=== PATIENT | female | born 1985 | race Caucasian/White ===

== ENCOUNTER 2022-05-08 21:56 | Emergency (ER) | payer BC ==
[2022-05-08] MEDS ORDERED: EPINEPHrine 1 MG/10 ML Abboject SYRINGE ONE (22:01)
[2022-05-08] MEDS ORDERED: EPINEPHrine 1 MG/ML AMP ONE ×2 (22:02→22:03)
[2022-05-08] MEDS ORDERED: diphenhydrAMINE 50 MG/ML VIAL ONE (22:03)
[2022-05-08] MEDS ORDERED: Famotidine/PF 20 mg/2ml Vial ONE (22:03)
[2022-05-08] MEDS ORDERED: methylPREDNISolone Sod Succ/PF 125 MG/2 ML VIAL ONE (22:03)
== END 2022-05-09 00:28 | disposition home or self-care (01) ==
LOC: CSHERS 21:56
DX: T78.2XXA Anaphylactic shock, unspecified, initial encounter (principal)
CPT/HCPCS: 96372; 96374; 96375; J0171; J1200; J2930; S0028

== ENCOUNTER 2022-12-21 09:31 | Emergency (ER) | payer BC ==
[2022-12-21] MEDS ORDERED: predniSONE 20 MG TAB ONE (12:48)
[2022-12-21] MEDS ORDERED: Ipratropium/Albuterol 3 ML NEB ONE ×2 (12:48→13:53)
[2022-12-21] MEDS ORDERED: predniSONE 20 MG TAB PO SCH (13:00)
== END 2022-12-21 14:20 | disposition home or self-care (01) ==
LOC: CSHERS 09:31
DX: O98.513 Other viral diseases complicating pregnancy, third trimester (principal); B34.9 Viral infection, unspecified; Z3A.31 31 weeks gestation of pregnancy
CPT/HCPCS: 71046; 94640; J7512; J7620

== ENCOUNTER 2023-01-03 10:26 | Day surgery (SDC) | payer BC | END 2023-01-03 11:55 | disposition home health service (06) | LOC: CSHLD/OP 10:26 | PROVIDERS: ATTEND Student in an Organized Health Care Education/Training Program | DX: O47.03 False labor before 37 completed weeks of gestation, third trimester (principal); O09.213 Supervision of pregnancy with history of pre-term labor, third trimester; O09.523 Supervision of elderly multigravida, third trimester; O99.113 Other diseases of the blood and blood-forming organs and certain disorders involving the immune mechanism complicating pregnancy, third trimester; M32.9 Systemic lupus erythematosus, unspecified; Z91.013 Allergy to seafood; Z3A.32 32 weeks gestation of pregnancy; Z79.899 Other long term (current) drug therapy | CPT/HCPCS: 99282 ==

== ENCOUNTER 2023-02-03 05:30 | Inpatient (IN) | payer BC ==
[2023-02-03 19:48] VITALS: BMI 39.3
[2023-02-03] MEDS ORDERED: Misoprostol 200 MCG TAB PR PRN (20:01)
[2023-02-03] MEDS ORDERED: HYDROcodone/Acetaminophen 5/325 mg Tablet PO PRN (20:01)
[2023-02-03] MEDS ORDERED: Diphenoxylate HCl/Atropine Tablet PO PRN (20:01)
[2023-02-03] MEDS ORDERED: Carboprost 250 MCG/ML AMP IM PRN (20:01)
[2023-02-03] MEDS ORDERED: fentaNYL 50 mcg/mL 1 mL Vial SLOW IVP PRN (20:01)
[2023-02-03] MEDS ORDERED: Acetaminophen 500 MG TAB PO PRN (20:01)
[2023-02-03] MEDS ORDERED: Ibuprofen 800 MG TAB PO PRN (20:01)
[2023-02-03] MEDS ORDERED: Oxytocin 30 units/NS 500 ML 500 ML IV SCH ×2 (20:01)
[2023-02-03] MEDS ORDERED: Lidocaine 1% (PF) 30 ML VIAL SC PRN (20:01)
[2023-02-03] MEDS ORDERED: Promethazine HCl 25 MG/ML VIAL IM PRN (20:01)
[2023-02-03] MEDS ORDERED: Ondansetron PF 4 MG/2 ML Vial IVP PRN (20:01)
[2023-02-03] MEDS ORDERED: Methylergonovine 0.2 MG/ML VIAL IM PRN (20:01)
[2023-02-03] MEDS ORDERED: hydrALAZINE 20 MG/ML VIAL SLOW IVP PRN (20:01)
[2023-02-03] MEDS: Lactated Ringer's 1,000 ML IV SCH (20:30)
[2023-02-03 21:12] LABS: Hematocrit 34.8 % (34.9-44.5); Hemoglobin 11.3 g/dL (12.0-15.5); Mean Corpuscular HGB CONC 32.5 g/dL (32.0-36.0); Mean Corpuscular Hemoglobin 26.5 pg (27.0-33.0); Mean Corpuscular Volume 81.7 fl (81.6-98.3); Mean Platelet Volume 10.8 fl (7.4-10.4); Platelet Count 326 10x3/uL (150-450); RBC Distribution Width 13.5 % (11.5-14.5); Red Blood Cell (RBC) Count 4.26 10x6/uL (3.90-5.03); White Blood Cell (WBC) Count 9.8 10x3/uL (3.5-10.5)
[2023-02-03 21:22] LABS: ALT (SGPT) 10 U/L (8-55); AST (SGOT) 16 U/L (5-34); Albumin 3.3 g/dL (3.5-5.0); Alkaline Phosphatase 141 U/L (40-110); Anion Gap 16 mmol/L (10-20); BUN (Urea Nitrogen) 11 mg/dL (7.0-18.7); Bilirubin, Total 0.4 mg/dL (0.2-1.2); Calc. Creatinine Clearance 169 mL/min (70-130); Calcium 10.7 mg/dL (7.8-10.44); Carbon Dioxide 20 mmol/L (22-29); Chloride 103 mmol/L (98-107); Estimated GFR 105; Globulin 2.8 g/dL (2.4-3.5); Glucose 86 mg/dL (70-105); Potassium 4.1 mmol/L (3.5-5.1); Protein, Total 6.1 g/dL (6.0-8.3); Sodium 135 mmol/L (136-145)
[2023-02-03] MEDS ORDERED: Zolpidem Tartrate 5 MG TAB PO SCH (21:30)
[2023-02-03] MEDS: Misoprostol 100 MCG TAB VAG SCH ×2 (21:41→21:42)
[2023-02-03 23:11] LABS: Hep B Surf Ag - L&D Non-Reactive S/CO (NonReactive); Syphilis Antibody Nonreactive (Nonreactive); Syphilis Antibody Index 0.03 S/CO (<1.00 Non-Reactive)
[2023-02-04] MEDS: Lactated Ringer's 1,000 ML IV SCH ×2 (03:40→23:53)
[2023-02-04] MEDS ORDERED: fentaNYL/Ropivacaine Epidural 100 ML ONE (08:44)
[2023-02-04] MEDS ORDERED: Promethazine HCl 25 MG/ML VIAL IM PRN ×2 (09:36→23:33)
[2023-02-04] MEDS ORDERED: Moisturizing Cream (Eucerin) 113 GM JAR TOP PRN (09:36)
[2023-02-04] MEDS ORDERED: Ondansetron PF 4 MG/2 ML Vial IVP PRN ×2 (09:36→23:33)
[2023-02-04] MEDS ORDERED: Naloxone HCl 0.4 mg/ml Vial IVP PRN ×2 (09:36)
[2023-02-04] MEDS ORDERED: ePHEDrine Sulfate 50 MG/10 ML VIAL SLOW IVP PRN (09:36)
[2023-02-04] MEDS ORDERED: diphenhydrAMINE 50 MG/ML VIAL IVP PRN (09:36)
[2023-02-04] MEDS ORDERED: Acetaminophen 325 MG TAB PO PRN (09:36)
[2023-02-04] MEDS ORDERED: Lactated Ringer's 500 ML IV PRN (09:36)
[2023-02-04] MEDS ORDERED: fentaNYL 2 mcg/Ropivacaine 0.2% Epidural 100 ML CADD EPIDURAL SCH (09:45)
[2023-02-04] MEDS ORDERED: Communication Order-Pharmacy FS SCH (09:45)
[2023-02-04] MEDS ORDERED: Bupivacaine 0.25% HCL 30 ML VIAL ONE (14:25)
[2023-02-04] MEDS ORDERED: HYDROcodone/Acetaminophen 5/325 mg Tablet PO PRN ×2 (23:33)
[2023-02-04] MEDS ORDERED: Bisacodyl 10 MG SUPP PR PRN (23:33)
[2023-02-04] MEDS ORDERED: hydrALAZINE 20 MG/ML VIAL SLOW IVP PRN (23:33)
[2023-02-04] MEDS ORDERED: Benzocaine-Menthol 82.5 ML CAN TOP PRN (23:33)
[2023-02-04] MEDS ORDERED: Lanolin Ointment 7 GM TUBE TOP PRN (23:33)
[2023-02-04] MEDS ORDERED: Milk Of Magnesia 30 ML UDCUP PO PRN (23:33)
[2023-02-04] MEDS ORDERED: Preparation H Ointment 28 GM TUBE PR PRN (23:33)
[2023-02-04] MEDS ORDERED: diphenhydrAMINE 25 MG CAP PO PRN (23:33)
[2023-02-04] MEDS ORDERED: Boostrix 0.5 ML (Tdap) VIAL (>/=7 yrs of age) IM ONE (23:33)
[2023-02-04] MEDS ORDERED: Ibuprofen 800 MG TAB PO SCH (23:45)
[2023-02-04] MEDS: Misoprostol 100 MCG TAB VAG SCH (23:53)
[2023-02-04] MEDS ORDERED: Zolpidem Tartrate 5 MG TAB PO PRN (23:59)
[2023-02-05] MEDS: Ibuprofen 800 MG TAB PO SCH ×3 (06:08→21:27)
[2023-02-05] MEDS: Ferrous Sulfate 325 MG TAB PO SCH ×2 (07:37→20:47)
[2023-02-05 07:44] LABS: Hematocrit 30.2 % (34.9-44.5); Hemoglobin 9.7 g/dL (12.0-15.5)
[2023-02-05] MEDS ORDERED: Prenatal Vitamin 1 TAB PO SCH (09:00)
[2023-02-05] MEDS: Docusate 100 MG CAP PO SCH ×2 (10:51→21:28)
[2023-02-05 16:00] VITALS: TEMP 98.4
[2023-02-05 20:59] VITALS: BP 135/87
== END 2023-02-05 21:30 | disposition home or self-care (01) | DRG 807 ==
LOC: CSHLD 19:33 → CSHPED 02-04 23:50
PROVIDERS: ADMIT Student in an Organized Health Care Education/Training Program; ATTEND Student in an Organized Health Care Education/Training Program
PROC: 10E0XZZ Delivery of Products of Conception, External Approach (ICD-10-PCS; principal; 2023-02-04)
DX: O36.5930 Maternal care for other known or suspected poor fetal growth, third trimester, not applicable or unspecified (principal); Z37.0 Single live birth; Z3A.37 37 weeks gestation of pregnancy; Z79.899 Other long term (current) drug therapy; Z79.82 Long term (current) use of aspirin; M32.9 Systemic lupus erythematosus, unspecified; Z91.013 Allergy to seafood; O99.892 Other specified diseases and conditions complicating childbirth
CPT/HCPCS: 36415; 51702; 80053; 85014; 85018; 85027; 86780; 86850; 86900; 86901; 87340; J2590; J7120; S0020

== ENCOUNTER 2023-03-18 19:26 | Emergency (ER) | payer BC ==
[2023-03-18 20:56] LABS: #Eosinphils 0.1 10x3/uL (0.0-0.5); #Monocytes 0.5 10x3/uL (0.0-1.1); #Neutrophils 1.6 10x3/uL (1.5-8.4); %Basophils 0.4 % (0.0-2.0); %Eosinophils 2.2 % (0.0-6.0); %Lymphocytes 50.9 % (18.0-47.0); %Monocytes 11.6 % (0.0-10.0); %Neutrophils 34.7 % (40.0-75.0); Hematocrit 34.7 % (34.9-44.5); Hemoglobin 10.6 g/dL (12.0-15.5); Mean Corpuscular HGB CONC 30.5 g/dL (32.0-36.0); Mean Corpuscular Hemoglobin 25.1 pg (27.0-33.0); Mean Platelet Volume 9.4 fl (7.4-10.4); Platelet Count 314 10x3/uL (150-450); Red Blood Cell (RBC) Count 4.23 10x6/uL (3.90-5.03); White Blood Cell (WBC) Count 4.6 10x3/uL (3.5-10.5)
[2023-03-18 21:13] LABS: ALT (SGPT) 44 U/L (8-55); AST (SGOT) 32 U/L (5-34); Albumin 3.7 g/dL (3.5-5.0); Alkaline Phosphatase 105 U/L (40-110); Anion Gap 14 mmol/L (10-20); BUN (Urea Nitrogen) 12 mg/dL (7.0-18.7); Bilirubin, Total 0.5 mg/dL (0.2-1.2); CK (CPK) 55 U/L (29-168); Calc. Creatinine Clearance 0 mL/min (70-130); Calcium 8.7 mg/dL (7.8-10.44); Carbon Dioxide 24 mmol/L (22-29); Chloride 105 mmol/L (98-107); Estimated GFR 98; Glucose 90 mg/dL (70-105); Protein, Total 6.7 g/dL (6.0-8.3); Sodium 139 mmol/L (136-145)
== END 2023-03-18 22:32 | disposition home or self-care (01) ==
LOC: CSHERS 19:26
DX: K13.79 Other lesions of oral mucosa (principal)
CPT/HCPCS: 36415; 80053; 82550; 84145; 85025; 86140; 99283